=== PATIENT | male | born 1955 | race Caucasian/White ===

== ENCOUNTER 2020-01-16 11:21 | Outpatient (CLI) | payer MEDICARE, MEDICAID, SELFPAY ==
--- NOTE | 2020-01-16 11:32 | CT_ITS ---
WS: [id number] CT CHEST, ABDOMEN AND PELVIS WITH CONTRAST HISTORY: RECTAL CANCER TECHNIQUE: Contiguous 5 mm axial imaging performed through the chest, abdomen and pelvis with IV cont rast, oral contrast has been provided. Coronal and sagittal reformats chest. Coronal and sagittal ref ormats through the abdomen and pelvis. All CT scans at [facility] use at least one of the se dose optimization techniques: automated exposure control; mA and/or kV adjustment per patient size (includes targeted exams where dose is matched to clinical indication); or iterative reconstruction. CONTRAST: Omnipaque 300; 95 mL IV. DLP: 2019.52 mGy.cm COMPARISON: 01/15/2019 and 01/12/[address]: New well-circumscribed pulmonary nodule at the medial RIGHT lung base measures 6 mm. This n odule was not present on the most recent examinations. No additional nodule or mass. No significant m ediastinal or hilar adenopathy. Heart size is normal. Small hiatal hernia. Mild atherosclerosis aorta . Abdomen CT: Diffuse hepatic steatosis. No metastatic disease. Gallbladder, spleen, pancreas and adren al glands are normal. No renal obstruction or mass. Moderate atherosclerosis aorta with no aneurysm. No free fluid or adenopathy. Pelvic CT: Normally distended urinary bladder. Anastomotic sutures at the rectum. There is no recurre nt soft tissue mass or adenopathy in the perirectal fat. No GI tract obstruction. Descending and sigm oid diverticulosis without acute diverticulitis. L5 anterolisthesis by 7 mm. Bilateral pars defects at L5. Severe disc space narrowing at L3-4. No ost eoblastic or osteolytic bone disease. CT/CT chest abd pel w con* IMPRESSION: 1. New, single RIGHT lower lobe 6 mm pulmonary nodule. Early metastatic disea se is not excluded but this also could be postinflammatory. [address] fo llow-up versus PET CT imaging recommended. 2. No metastatic disease noted within the liver, adrenal glands or the pelvis. 3. Stable anastomotic sutures at the rectosigmoid region. 4. Atherosclerosis aorta. 5. Stable grade 1 anterolisthesis of L5.
[2020-01-16 11:57] LABS: Basophils % 0.6 %; Eosinophils # 0.2 10^3/uL (0.0-0.8); Eosinophils % 2.7 %; Hematocrit 50.7 % (42.0-52.0); Hemoglobin 16.4 g/dL (11.7-16.6); Lymphocytes % 29.9 %; Mean Corpuscular HGB Conc 32.3 g/dL (30.0-36.0); Mean Corpuscular Volume 95.8 fL (80-94); Mean Platelet Volume 10.8 fL (7.4-10.4); Monocytes # 0.5 10^3/uL (0.2-0.9); Monocytes % 7.4 %; Neutrophils # 3.9 10^3/uL (1.8-7.7); Neutrophils % 59.1 %; Nucleated Red Blood Cells % 0 %; Platelet Count 223 10^3/cmm (130-400); Red Blood Count 5.29 10^6/uL (4.1-5.3); Red Cell Distribution Width 12.7 % (12.1-15.1); White Blood Count 6.7 10^3/uL (4.0-10.0)
[2020-01-16] MEDS: iohexol 300 mg/mL 50 mL Btl PO (12:13)
[2020-01-16 13:19] LABS: Alanine Aminotransferase 48 U/L (0-41); Albumin Level 4.5 g/dL (3.5-5.2); Alkaline Phosphatase 87 IU/L (40-130); Anion Gap 17.6 (5-19); Aspartate Amino Transferase 27 U/L (0-40); Blood Urea Nitrogen 11 mg/dL (8-23); Calcium 10.2 mg/dL (8.5-10.5); Carbon Dioxide 28 mmol/L (22-29); Chloride 100 mmol/L (98-107); Globulin 3.4 g/dL (1.3-4.6); Glomerular Filtration Rate 97.6 mL/min (90-130); Glucose 106 mg/dL (65-115); Potassium 4.6 mmol/L (3.5-5.1); Sodium 141 mmol/L (136-145); Total Bilirubin 0.3 mg/dL (0.15-1.2); Total Protein 7.9 g/dL (6.6-8.7)
[2020-01-16] MEDS: iohexol 300 mg/mL 100 mL Btl IV (13:43)
== END 2020-01-16 11:22 | disposition home or self-care (01) ==
LOC: ONCMED 11:23
PROVIDERS: PCP Nurse Practitioner Family; Visit Provider Internal Medicine Medical Oncology
DX: C20 Malignant neoplasm of rectum (principal); R91.8 Other nonspecific abnormal finding of lung field; I25.10 Atherosclerotic heart disease of native coronary artery without angina pectoris
CPT/HCPCS: 36415; 71260; 74177; 80053; 82378; 85025; Q9967

== ENCOUNTER 2020-01-20 14:59 | Outpatient (CLI) | payer MEDICARE, MEDICAID, SELFPAY ==
--- NOTE | 2020-01-24 06:43 | ONC FU_ITS ---
Dr. Lisa Patient Follow-Up Note Patient: Som Jimenez Unit #: [id number]: 1955 Dicatated By: Derrell Lisa M.D.Date of Visit:Jan 20, 2020 Onc Med Follow-up/Prog Note Chief Complaint: Rectal cancer. History of Present Illness: This is a 64 year-old man with moderately differentiated adenocarcinoma of the rectum, stage IIIB (pT3, pN1a, M0). He had presented with rectal bleeding and he was found on colonoscopy in April 2014 to have a non-obstructing malignant appearing mass in the rectum. It was noted to be ulcerated, and it measured 2 x 3 cm. Biopsy showed well differentiated infiltrating adenocarcinoma in the rectum, which was reported to be at 10 cm. He was referred to Dr. Ring in [place]. He appeared to have early stage disease by clinical evaluation, which included CT scan and transrectal ultrasound. On 06/13/2014 he underwent robotic proctectomy with coloanal anastomosis and placement of loop ileostomy. He tolerated the procedure well. He did develop some transient ileus during recovery, but his postoperative course was otherwise uneventful. Pathology showed moderately differentiated invasive adenocarcinoma which measured 3.8 x 3.2 x 1.2 cm. The tumor was noted to extend up to 1.2 cm through the submucosa, muscularis propria and into the adjacent mesentery rectum. Grossly the tumor was located 3.5 cm from the rectal end margin, 19.5 cm and the opposing sigmoid end margin, 12.5 cm from the medial colonic surgical clearance margin and 0.1 cm from the mesorectal surgical clearance margin. There was involvement in 1 of 64 lymph nodes. Also noted was acute diverticulitis with abscess formation in the sigmoid and multiple hyperplastic polyps. He was given adjuvant chemotherapy with modified FOLFOX. As of November 2014 he had completed 10 cycles of chemotherapy. The oxaliplatin was omitted with the 9th and 10th cycles due to worsening neuropathy. At that point he opted to stop treatment. He was adamantly opposed to having radiation. He underwent reversal of his ostomy in December 2014, and at that time he also had his Port-A-Cath removed. He has since then been followed on observation. He also has a history of hypertension. He has had no other medical illnesses and no prior surgeries. He previously smoked 2 packs of cigarettes daily for a period of 18 years. He quit smoking in 1997. He has had just very occasional alcohol use. INTERIM HISTORY: His surveillance CT of the abdomen/pelvis on 11/21/2016 showed no evidence of metastatic disease. He had surveillance sigmoidoscopy in June, and that was reportedly negative. Surveillance CT of the abdomen/pelvis on 01/12/2018 showed no evidence of recurrent or metastatic disease. There were residual changes of left upper quadrant omental infarct versus focal panniculitis. Surveillance CT scans on 01/15/2019 showed no evidence of neoplastic process in the chest, abdomen, or pelvis. There was no change in diffuse fatty infiltration of the liver. He continued on observation/expectant management. Surveillance CT scans chest, abdomen, and pelvis on 01/16/2020 showed a single new right lower lobe pulmonary nodule measuring 6 mm. Early metastatic disease was not excluded, and a 3-month follow-up study was recommended. There were no other findings to suggest metastatic disease in the chest, abdomen, or pelvis. He is seen for a scheduled visit. He has been feeling good generally. He has good energy and activity tolerance. He has good appetite. His weight is stable. He has no fever or night sweats. He has no shortness of breath, cough, or chest pain. He has no GI/ complaints other than a little bit of heartburn. He has some chronic back pain, which is stable. He has a little bit of residual neuropathy. Medications: Losartan Potassium 1 Tablet (of 50 mg) Oral daily Allergies: WASP STINGS Review of Systems: Constitutional - His energy is good. He has normal activity and enjoys fishing. His appetite is good and his weight is stable. No fever, chills, hot flashes, or night sweats. ECOG score is 0, ENMT - No sinus congestion/drainage. No mouth sores. No sore throat or difficulty swallowing, Hematologic/Lymphatic - No abnormal bruising or bleeding, Respiratory - No shortness of breath. No cough. No pleuritic pain or hemoptysis, Cardiovascular - No angina pain. No palpitations, Gastrointestinal - No nausea or vomiting. He has occasional heartburn. No diarrhea or constipation. No blood in the stool or black stools, Genitourinary (M) - No dysuria or hematuria. No urinary frequency. No urgency or incontinence, Musculoskeletal - He has arthritis in his back, Integumentary - No skin complications, Neurologic - No headache or dizziness. No numbness/paresthesias or other focal neurologic symptoms, Psychiatric - No anxiety or depression. No insomnia. Vital Signs: Performed on Jan 20, 2020 15:03 Height - 70.00 in Weight - 204 lbs (HIGH) BSA - 2.10 sq.m BMI - 29.27 Temperature - 98.1 F (LOW) Pulse - 86 /min Respiration - 18 /min BP - 160/86 mm(hg) (HIGH) O2 Sat - 95 % (LOW) Pain - 0 Physical Examination: Constitutional - He looks good generally, Eyes - Sclerae nonicteric. Conjunctivae clear, ENMT - No lesions noted in the oral cavity, Hematologic/Lymphatic - No cervical, clavicular, or axillary adenopathy, Respiratory - Lungs are clear with good air movement bilaterally, Cardiovascular - Heart rhythm is regular. There is no murmur, gallop, or rub noted, Abdomen - Mildly distended but soft. Liver and spleen are not enlarged. There is no abdominal mass or ascites noted and there is no inguinal adenopathy, Extremities - No edema, Neurologic - No focal neurologic deficits noted. Lab/Imaging: Test performed on Jan 16, 2020 11:50 Sodium 141 mmol/L Potassium 4.6 mmol/L Chloride 100 mmol/L CO2 28 mmol/L Anion Gap 17.6 BUN 11 mg/dL Creatinine 0.8 mg/dL Cr Clearance (Est) 123.3400 mL/min eGFR 97.6 mL/min Glucose 106 mg/dL Calcium 10.2 mg/dL Protein, Total 7.9 g/dL Albumin 4.5 g/dL Globulin 3.4 g/dL Bilirubin, Total 0.3 mg/dL ALT (SGPT) 48 U/L AST (SGOT) 27 U/L Alkaline Phosphatase 87 IU/L WBC 6.7 10 3/uL RBC 5.29 10 6/uL HGB 16.4 g/dL HCT 50.7 % MCV 95.8 fL MCH 31.0 pg MCHC 32.3 g/dL RDW 12.7 % Platelet Count 223 10 3/cmm MPV 10.8 fL Neutrophils 3.9 10 3/uL Lymphocytes 2.0 10 3/uL Monocytes 0.5 10 3/uL Eosinophils 0.2 10 3/uL Basophils 0.0 10 3/uL Neutrophil % 59.1 % Lymphocyte % 29.9 % Monocyte % 7.4 % Eosinophil % 2.7 % Basophils % 0.6 % CEA 2.0 ng/mL Impression: 1. Patient with moderately differentiated adenocarcinoma of the rectum, stage IIIB (pT3, pN1a, M0). 2. He underwent robotic proctectomy with coloanal anastomosis and placement of looped ileostomy on 06/13/2014. 3. He was given adjuvant chemotherapy with modified FOLFOX. As of November 2014 he had completed a total of 10 cycles of treatment, but the oxaliplatin was omitted with cycles 9 and 10 due to worsening neuropathy. 4. He underwent reversal of his ostomy and removal of his Portacath in December 2014. He declined radiation. He has since then been followed on observation. 5. He also has hypertension. During followup he has been doing well clinically. His current CT scan showed new 6 mm pulmonary nodule in the right lower lobe, early metastasis not excluded. There has been no other evidence of recurrence of his rectal cancer. Plan: He remains on observation/expectant management. He will be scheduled for a repeat chest CT in 3 months. He will have further evaluation as indicated. I will tentatively just plan a follow-up visit in 1 year. Signed By: Derrell Lisa M.D. <<Signature on File>>
== END 2020-01-20 15:00 | disposition home or self-care (01) ==
LOC: ONCMED 14:59
PROVIDERS: PCP Nurse Practitioner Family; Visit Provider Internal Medicine Medical Oncology
DX: Z08 Encounter for follow-up examination after completed treatment for malignant neoplasm (principal); Z85.048 Personal history of other malignant neoplasm of rectum, rectosigmoid junction, and anus; R91.1 Solitary pulmonary nodule; I10 Essential (primary) hypertension; Z92.21 Personal history of antineoplastic chemotherapy; Z90.79 Acquired absence of other genital organ(s)
CPT/HCPCS: G0463

== ENCOUNTER 2020-04-21 12:29 | Outpatient (CLI) | payer MEDICARE, MEDICAID, SELFPAY ==
--- NOTE | 2020-04-21 | CT_ITS ---
WS: [id number] CT CHEST WITHOUT INTRAVENOUS CONTRAST HISTORY: PULMONARY NODULE TECHNIQUE: Contiguous 5 mm axial imaging performed on the thorax. Coronal and sagittal reformats are submitted. All CT scans at [facility] use at least one of these dose optimization techniq ues: automated exposure control; mA and/or kV adjustment per patient size (includes targeted exams wh ere dose is matched to clinical indication); or iterative reconstruction. CONTRAST: None DLP: 1066.76 mGycm COMPARISON: 01/16/2020 Lungs and central airway: Recently described nodule in the medial RIGHT lower lobe has resolved. No p ulmonary nodule is identified. Lungs are well-aerated. No pneumonia. Pleura: Normal. No pleural effusion. Heart and pericardium: Normal size heart. Mild scattered atherosclerotic plaque in the anterior desce nding and the circumflex coronary arteries. Mediastinum and anna: Small benign appearing mediastinal lymph nodes. Vessels: Mild atherosclerosis aorta. No aneurysm. Pulmonary artery size is top normal to slightly enl arged. Chest wall and lower neck: No soft tissue masses. Upper abdomen: Hepatic steatosis with areas of sparing. Negative adrenal glands. Osseous structures: No osteoblastic or osteolytic bone disease. CT/CT chest wo con [id number] IMPRESSION: 1. Interval resolution of the medial RIGHT lower lobe pulmonary nodule. No pul monary nodules are identified today. 2. Atherosclerosis aorta and coronary arteries. 3. Hepatic steatosis.
== END 2020-04-21 12:30 | disposition home or self-care (01) ==
LOC: RADWPI 12:33
PROVIDERS: PCP Nurse Practitioner Family; Visit Provider Internal Medicine Medical Oncology
DX: R91.1 Solitary pulmonary nodule (principal); I70.0 Atherosclerosis of aorta; I25.10 Atherosclerotic heart disease of native coronary artery without angina pectoris; K76.0 Fatty (change of) liver, not elsewhere classified
CPT/HCPCS: 71250

== ENCOUNTER 2021-01-20 13:33 | Outpatient (CLI) | payer MEDICARE, MEDICAID, SELFPAY ==
[2021-01-20 14:07] LABS: Basophils # 0.1 10^3/uL (0.0-0.1); Basophils % 0.7 %; Eosinophils # 0.1 10^3/uL (0.0-0.8); Hematocrit 48.8 % (42.0-52.0); Lymphocytes # 1.7 10^3/uL (0.8-4.8); Lymphocytes % 24.3 %; Mean Corpuscular HGB Conc 32.8 g/dL (30.0-36.0); Mean Corpuscular Hemoglobin 30.8 pg (28.0-34.0); Mean Corpuscular Volume 93.8 fL (80-94); Mean Platelet Volume 11.5 fL (7.4-10.4); Monocytes # 0.7 10^3/uL (0.2-0.9); Monocytes % 9.2 %; Neutrophils # 4.56 10^3/uL (1.8-7.7); Neutrophils % 63.7 %; Nucleated Red Blood Cells % 0 %; Platelet Count 250 10^3/cmm (130-400); Red Cell Distribution Width 12.3 % (12.1-15.1); White Blood Count 7.2 10^3/uL (4.0-10.0)
[2021-01-20 14:37] LABS: Alanine Aminotransferase 36 U/L (0-41); Albumin Level 4.6 g/dL (3.5-5.2); Alkaline Phosphatase 79 IU/L (40-130); Aspartate Amino Transferase 22 U/L (0-40); Blood Urea Nitrogen 19 mg/dL (8-23); Calcium 9.8 mg/dL (8.5-10.5); Carbon Dioxide 28 mmol/L (22-29); Chloride 101 mmol/L (98-107); Glomerular Filtration Rate 67.4 mL/min (90-130); Glucose 91 mg/dL (65-115); Osmolality Calculated 290 mOsm/kg (285-295); Sodium 139 mmol/L (136-145); Total Bilirubin 0.2 mg/dL (0.15-1.2); Total Protein 7.6 g/dL (6.6-8.7)
[2021-01-20 16:00] LABS: Carcinoembryonic Antigen 2.5 ng/mL (0.0-4.7)
--- NOTE | 2021-01-24 11:34 | ONC FU_ITS ---
Dr. Lisa Patient Follow-Up Note Patient: Som iJmenez Unit #: [id number]: 1955 Dicatated By: Derrell Lisa M.D.Date of Visit:Jan 20, 2021 Onc Med Follow-up/Prog Note Chief Complaint: Rectal cancer. History of Present Illness: This is a 65 year-old man with moderately differentiated adenocarcinoma of the rectum, stage IIIB (pT3, pN1a, M0). He had presented with rectal bleeding and he was found on colonoscopy in April 2014 to have a non-obstructing malignant appearing mass in the rectum. It was noted to be ulcerated, and it measured 2 x 3 cm. Biopsy showed well differentiated infiltrating adenocarcinoma in the rectum, which was reported to be at 10 cm. He was referred to Dr. Ring in [place]. He appeared to have early stage disease by clinical evaluation, which included CT scan and transrectal ultrasound. On 06/13/2014 he underwent robotic proctectomy with coloanal anastomosis and placement of loop ileostomy. He tolerated the procedure well. He did develop some transient ileus during recovery, but his postoperative course was otherwise uneventful. Pathology showed moderately differentiated invasive adenocarcinoma which measured 3.8 x 3.2 x 1.2 cm. The tumor was noted to extend up to 1.2 cm through the submucosa, muscularis propria and into the adjacent mesentery rectum. Grossly the tumor was located 3.5 cm from the rectal end margin, 19.5 cm and the opposing sigmoid end margin, 12.5 cm from the medial colonic surgical clearance margin and 0.1 cm from the mesorectal surgical clearance margin. There was involvement in 1 of 64 lymph nodes. Also noted was acute diverticulitis with abscess formation in the sigmoid and multiple hyperplastic polyps. He was given adjuvant chemotherapy with modified FOLFOX. As of November 2014 he had completed 10 cycles of chemotherapy. The oxaliplatin was omitted with the 9th and 10th cycles due to worsening neuropathy. At that point he opted to stop treatment. He was adamantly opposed to having radiation. He underwent reversal of his ostomy in December 2014, and at that time he also had his Port-A-Cath removed. He has since then been followed on observation. He also has a history of hypertension. He has had no other medical illnesses and no prior surgeries. He previously smoked 2 packs of cigarettes daily for a period of 18 years. He quit smoking in 1997. He has had just very occasional alcohol use. INTERIM HISTORY: His surveillance CT of the abdomen/pelvis on 11/21/2016 showed no evidence of metastatic disease. He had surveillance sigmoidoscopy in June, and that was reportedly negative. Surveillance CT of the abdomen/pelvis on 01/12/2018 showed no evidence of recurrent or metastatic disease. There were residual changes of left upper quadrant omental infarct versus focal panniculitis. Surveillance CT scans on 01/15/2019 showed no evidence of neoplastic process in the chest, abdomen, or pelvis. There was no change in diffuse fatty infiltration of the liver. Surveillance CT scans chest, abdomen, and pelvis on 01/16/2020 showed a single new right lower lobe pulmonary nodule measuring 6 mm. Early metastatic disease was not excluded, and a 3-month follow-up study was recommended. There were no other findings to suggest metastatic disease in the chest, abdomen, or pelvis. Repeat chest CT on 04/21/2020 showed interval resolution of the right lower lobe pulmonary nodule. There are no new nodules identified. With that finding he continued on observation/expectant management. He is seen for a follow-up visit. He has been feeling good generally. He has good energy and activity tolerance. ECOG score is 0. His appetite is good. His weight is stable. He does not have fever or night sweats. He has no shortness of breath, cough, or chest pain. He has no GI or complaints. He has some back pain, which is chronic. He does not complain of headache or dizziness. He has only a little bit of residual neuropathy in his hands. Medications: Losartan Potassium 1 Tablet (of 50 mg) Oral daily Allergies: WASP STINGS Vital Signs: Performed on Jan 20, 2021 15:25 Height - 70.00 in Weight - 202.2 lbs (LOW) BSA - 2.10 sq.m BMI - 29.01 Temperature - 96 F (LOW) Pulse - 81 /min Respiration - 18 /min BP - 143/84 mm(hg) (HIGH) O2 Sat - 97 % Pain - 0 Fatigue - 0 Physical Examination: Constitutional - He looks good generally, Eyes - Sclerae nonicteric. Conjunctivae clear, ENMT - No lesions noted in the oral cavity, Hematologic/Lymphatic - No cervical, clavicular, or axillary adenopathy, Respiratory - Lungs are clear with good air movement bilaterally, Cardiovascular - Heart rhythm is regular. There is no murmur, gallop, or rub noted, Abdomen - Mildly distended but soft. Liver and spleen are not enlarged. There is no abdominal mass or ascites noted and there is no inguinal adenopathy, Extremities - No edema, Neurologic - No focal neurologic deficits noted. Lab/Imaging: Test performed on Jan 20, 2021 13:48 Sodium 139 mmol/L Potassium 4.0 mmol/L Chloride 101 mmol/L CO2 28 mmol/L Anion Gap 14.0 BUN 19 mg/dL Creatinine 1.1 mg/dL Cr Clearance (Est) 88.01 mL/min eGFR 67.4 mL/min Glucose 91 mg/dL Osmolality - Calculated 290 mOsm/kg Calcium 9.8 mg/dL Protein, Total 7.6 g/dL Albumin 4.6 g/dL Globulin 3.0 g/dL Bilirubin, Total 0.2 mg/dL ALT (SGPT) 36 U/L AST (SGOT) 22 U/L Alkaline Phosphatase 79 IU/L WBC 7.2 10 3/uL RBC 5.20 10 6/uL HGB 16.0 g/dL HCT 48.8 % MCV 93.8 fL MCH 30.8 pg MCHC 32.8 g/dL RDW 12.3 % Platelet Count 250 10 3/cmm MPV 11.5 fL Neutrophils 4.56 10 3/uL Lymphocytes 1.7 10 3/uL Monocytes 0.7 10 3/uL Eosinophils 0.1 10 3/uL Basophils 0.1 10 3/uL Neutrophil % 63.7 % Lymphocyte % 24.3 % Monocyte % 9.2 % Eosinophil % 2.0 % Basophils % 0.7 % NRBC % 0 % CEA 2.5 ng/mL Problem List: 1. Patient with moderately differentiated adenocarcinoma of the rectum, stage IIIB (pT3, pN1a, M0). He underwent robotic proctectomy with coloanal anastomosis and placement of looped ileostomy on 06/13/2014. 2. He also has hypertension. Problems Addressed with this Encounter and Plan: Patient with moderately differentiated adenocarcinoma of the rectum, stage IIIB (pT3, pN1a, M0). He underwent robotic proctectomy with coloanal anastomosis and placement of looped ileostomy on 06/13/2014. He was given adjuvant chemotherapy with modified FOLFOX. As of November 2014 he had completed a total of 10 cycles of treatment, but the oxaliplatin was omitted with cycles 9 and 10 due to worsening neuropathy. He underwent reversal of his ostomy and removal of his Portacath in December 2014. He was then followed on observation. He declined radiation. During follow-up his clinical status has remained stable. Thus far there has been no evidence of recurrence of the rectal cancer. He remains on observation/expectant management. He is overdue for surveillance colonoscopy, and I will arrange for that with Dr. Ring. He will otherwise continue regular follow-up with Radha Nava. I would recommend continued monitoring of his CBC, comprehensive metabolic profile, and CEA level on a yearly basis. I will see him again only as needed. Signed By: Derrell Lisa M.D. <<Signature on File>>
== END 2021-01-20 13:34 | disposition home or self-care (01) ==
LOC: ONCMED 13:38
PROVIDERS: PCP Nurse Practitioner Family; Visit Provider Internal Medicine Medical Oncology
DX: Z08 Encounter for follow-up examination after completed treatment for malignant neoplasm (principal); Z85.048 Personal history of other malignant neoplasm of rectum, rectosigmoid junction, and anus; I10 Essential (primary) hypertension; Z90.49 Acquired absence of other specified parts of digestive tract; Z92.21 Personal history of antineoplastic chemotherapy
CPT/HCPCS: 80053; 82378; 85025; G0463

== ENCOUNTER 2023-05-03 14:29 | Outpatient (CLI) | payer MEDICARE, MEDICAID, SELFPAY ==
--- NOTE | 2023-05-03 14:38 | CT_ITS ---
WS: [id number] CT CHEST, ABDOMEN AND PELVIS WITH CONTRAST. HISTORY: RIGHT FLANK PAIN, HISTORY OF MALIGNANT NEOPLASM OF COLON TECHNIQUE: Contiguous 5 mm axial imaging performed through the chest, abdomen and pelvis with IV cont rast, oral contrast has been provided. Coronal and sagittal reformats chest. Coronal and sagittal ref ormats through the abdomen and pelvis. All CT scans at [facility] use at least one of these d ose optimization techniques: automated exposure control; mA and/or kV adjustment per patient size (in cludes targeted exams where dose is matched to clinical indication); or iterative reconstruction. CONTRAST: Omnipaque 350; 100 mL IV. DLP: 1092.03 mGy.cm COMPARISON: 04/21/2020 and 01/16/[address]: Lungs are well-aerated. No pulmonary nodule or mass. No pneumonia. Mild atherosclerosis tho racic aorta. Normal size pulmonary artery. Normal size heart. No pericardial or pleural effusion. Sma ll amount of atherosclerotic plaque and soft plaque in the proximal LEFT subclavian artery. Stenosis less than 50%. No adenopathy. Abdomen CT: Liver and spleen are normal size. Mild hepatic steatosis. Enhancement pattern is similar to the study from 2019. Normal spleen and pancreas. No adrenal mass. Normal gallbladder. No renal obs truction or atrophy. No solid mass. Moderate atherosclerotic plaque within the abdominal aorta. Calci fied plaque continues into the common iliac arteries with moderate stenosis. No adenopathy or ascites . No free air. Normal stomach. No small bowel obstruction. Normal appendix. No colon obstruction or wall thickening. Very low rectal sigmoid anastomotic suture row. No recurrent mass and no adenopathy. Minimal prostat e enlargement. Pelvic CT: No free fluid or adenopathy. Negative urinary bladder. Advanced degenerative changes at L3-4. Grade 1 anterolisthesis of L5 with bilateral pars defects at L 5. Stable sclerotic focus over the mid thoracic vertebral bodies, probably T7. CT/CT chest abdpel w/*[id number] IMPRESSION: 1. Status post rectosigmoid anastomosis for neoplasm. No recurrent mass and no adjacent adenopathy. 2. Hepatic steatosis. No metastatic disease within the liver or adrenal glands . 3. Normal appendix. 4. Moderate atherosclerotic plaque within the aorta with extension into the co mmon iliac arteries. 5. No pulmonary nodule or metastatic disease. No adenopathy.
[2023-05-03] MEDS: iohexol 350 mg/mL 500 mL Btl (per mL) PO (15:46)
[2023-05-03] MEDS: iohexol 350 mg/mL 500 mL Btl (per mL) IV (15:47)
== END 2023-05-03 14:30 | disposition home or self-care (01) ==
PROVIDERS: PCP Nurse Practitioner Family; Visit Provider Family Medicine
DX: R10.9 Unspecified abdominal pain (principal); R91.1 Solitary pulmonary nodule; Z85.038 Personal history of other malignant neoplasm of large intestine; K76.0 Fatty (change of) liver, not elsewhere classified; I70.0 Atherosclerosis of aorta
CPT/HCPCS: 71260; 74177; Q9967